=== PATIENT | female | born 1985 | race Caucasian/White ===

== ENCOUNTER 2019-09-08 16:44 | Emergency (ER) | payer OTHER, SELFPAY ==
[2019-09-08 16:53] VITALS: BP 132/77; PULSE 93; RESP 20; TEMP 36.7; O2SAT 98
--- NOTE | 2019-09-08 17:38 | ED.EAR ---
HPI - Ear Problem General Chief complaint: Ear Stated complaint: left ear swelling Time Seen by Provider: 09/08/19 16:53 Source: patient Mode of arrival: ambulatory Limitations: no limitations History of Present Illness HPI Narrative: Patient presents the emergency department for bilateral outer ear irritation x3 days. Reports scaly rash with itching. Reports history of eczema. Denies fever. Related Data Home Medications Medication Instructions Recorded Confirmed triamterene-hydrochlorothiazid tablet 09/08/19 Allergies Allergy/AdvReac Type Severity Reaction Status Date / Time No Known Allergies Allergy Verified 09/08/19 16:58 Review of Systems Review of Systems: Narrative: CONSTITUTIONAL: Denies fever ENT: Reports otalgia. SKIN: Reports rash and itching. All systems reviewed & are unremarkable except as noted in HPI and below PMFSH Past Medical History Medical History (Updated 09/08/19 @ 17:42 by Ying Rao PA-C) Gallbladder disease Surgical History Surgical History (Updated 02/10/19 @ 03:35 by Lesly Arrieta MD) H/O section History of appendectomy Social History Social History (Updated 02/10/19 @ 03:36 by Lesly Arrieta MD) Smoking packs per day: 0.5 Smoking cigarettes per day: 10.0 Smoking status: Current every day smoker Gender identity (if verbalized by the patient): Female Exam Narrative: Exam Narrative: GENERAL: Well-appearing, well-nourished, and in no acute distress. HEAD: Normocephalic, atraumatic. EYES: EOMI. ENT: Bilateral TMs pearly agee non-bulging. Bilateral external auditory canals normal. External ears with crusting and redness NECK: Supple. No adenopathy or masses. EXTREMITIES: Normal range of motion. No edema. SKIN: Warm, dry, no rash. NEURO: No focal deficits. Alert and oriented x3. PSYCH: Normal mood and affect Course Vital Signs Vital signs: Vital Signs Temperature 98.1 F 09/08/19 16:53 Pulse Rate 93 09/08/19 16:53 Respiratory Rate 20 09/08/19 16:53 Blood Pressure 132/77 09/08/19 16:53 Pulse Oximetry 98 09/08/19 16:53 Temperature 98.1 F 09/08/19 16:53 Pulse Rate 93 09/08/19 16:53 Respiratory Rate 20 /21/20 16:53 Blood Pressure 132/77 09/08/19 16:53 Pulse Oximetry 98 09/08/19 16:53 Medical Decision Making Vital Signs Vital Signs: Vital Signs Temperature 98.1 F 09/08/19 16:53 Pulse Rate 93 09/08/19 16:53 Respiratory Rate 09/08/19 16:53 Blood Pressure 132/77 09/08/19 16:53 Pulse Oximetry 98 09/08/19 16:53 Temperature 98.1 F 09/08/19 16:53 Pulse Rate 93 09/08/19 16:53 Respiratory Rate 09/08/19 16:53 Blood Pressure 132/77 09/08/19 16:53 Pulse Oximetry 98 09/08/19 16:53 Critical Care Time Critical Care Time Critical Care Time: No Discharge Plan Discharge Clinical Impression: Dermatitis, seborrheic Patient Disposition: Home, Self-Care Condition: Stable Instructions: Seborrheic Dermatitis (DC) Additional Instructions: Return to the emergency department if you experience fever, worsening pain, worsening swelling, or any other symptoms that are concerning to you Apply steroid twice daily until symptoms resolve. Take a Zyrtec daily to help with itching Follow-up with your primary care doctor Prescriptions: New triamcinolone acetonide 0.1 % cream 1 applic TOPICAL BID Qty: 30 RF: 0 No Action triamterene-hydrochlorothiazid 75-50 mg tablet RF: 0 Follow-up/Referrals: Seamus,Melly Walsh MD [Primary Care Provider] - 3 Days
== END 2019-09-08 17:52 | disposition home or self-care (01) ==
PROVIDERS: Emergency Provider Emergency Medicine; PCP Family Medicine
DX: L21.9 Seborrheic dermatitis, unspecified (principal); F17.210 Nicotine dependence, cigarettes, uncomplicated
CPT/HCPCS: 99283

== ENCOUNTER 2020-01-08 10:09 | Emergency (ER) | payer OTHER, SELFPAY ==
[2020-01-08 10:24] VITALS: BP 142/94; PULSE 83; RESP 12; TEMP 36; O2SAT 99
--- NOTE | 2020-01-08 11:03 | ED.DENTAL ---
HPI - Dental/Oral General Chief complaint: Dental/Oral Stated complaint: R UPPER TOOTHACHE Time Seen by Provider: 01/08/20 10:13 Source: patient Mode of arrival: ambulatory Limitations: no limitations History of Present Illness HPI Narrative: Patient presents with chief complaint of right upper dental pain that has been present over the past week but worsened over the past 24 hours. Patient states that she has been broken dentition with lots of cavities. Patient has not seen a dentist for her symptoms yet. Patient has any fever, chills, nausea, vomiting, diarrhea or drainage. Patient denies chance of . Teeth map: 1. pain, no abscess noted Related Data Home Medications Medication Instructions Recorded Confirmed triamterene-hydrochlorothiazid tablet 09/08/19 Allergies Allergy/AdvReac Type Severity Reaction Status Date / Time No Known Allergies Allergy Verified 09/08/19 16:58 Review of Systems Review of Systems: Narrative: CONSTITUTIONAL: Denies fever, chills, or sweats. EYES: Denies visual changes, redness, or discharge. ENT: Reports dental pain denies rhinorrhea, congestion, sore throat, or otalgia. CARDIOVASCULAR: Denies chest pain, palpitations, or edema. RESPIRATORY: Denies cough or dyspnea. GASTROINTESTINAL: Denies abdominal pain, nausea, vomiting, or diarrhea. GENITOURINARY: Denies dysuria or hematuria. SKIN: Denies rash or itching. MUSCULOSKELETAL: Denies back pain, joint pain, or myalgia. NEUROLOGIC: Denies headache, numbness, dizziness, or weakness. PSYCHIATRIC: Denies anxiety or depression. [facility] Past Medical History Medical History (Updated 01/08/20 @ 11:02 by Anuradha Yeboah PA-C) Gallbladder disease Surgical History Surgical History (Updated 02/10/19 @ 03:35 by Lesly Arrieta MD) H/O section History of appendectomy Social History Social History (Updated 02/10/19 @ 03:36 by Lesly Arrieta MD) Smoking packs per day: 0.5 Smoking cigarettes per day: 10.0 Smoking status: Current every day smoker Gender identity (if verbalized by the patient): Female Exam Narrative: Exam Narrative: GENERAL: Well-appearing, well-nourished, and in no acute distress. HEAD: Normocephalic, atraumatic. EYES: PERRLA and EOMI. ENT: Patient dentition is poor with plaquing, broken dentition, cavities and tooth decay throughout. There is no signs of abscess at the gumline. There is no drainage expressed from the tooth at this time. Nares clear, no rhinorrhea or epistaxis. Mucous membranes moist. Oropharynx without tonsillar hypertrophy exudate or other lesions. Bilateral TMs pearly agee nonbulging NECK: Supple. No adenopathy or masses. CHEST: Clear to auscultation. No respiratory distress. No wheezes rales or rhonchi HEART: Regular rate and rhythm. No murmur heard. EXTREMITIES: Normal range of motion. No edema. SKIN: Warm, dry, no rash. NEURO: No focal deficits. Alert and oriented x3. PSYCH: Normal mood and affect. Course Vital Signs Vital signs: Vital Signs Temperature 96.8 F L 01/08/20 10:24 Pulse Rate 83 01/08/20 10:24 Respiratory Rate 12 01/08/20 10:24 Blood Pressure 142/94 H 01/08/20 10:24 Pulse Oximetry 99 01/08/20 10:24 Temperature 96.8 F L 01/08/20 10:24 Pulse Rate 83 01/08/20 10:24 Respiratory Rate 12 01/08/20 10:24 Blood Pressure 142/94 H 01/08/20 10:24 Pulse Oximetry 99 01/08/20 10:24 MDM - Dental/Oral MDM Narrative Medical decision making narrative: Patient denies any chance of and has been informed that naproxen recommended if is possible. Patient verbalized understanding and states that she is not at all . Patient declines medication in this case. Discussed with patient the importance of following up with a dentist for definitive dental evaluation and treatment. Patient verbalized understanding and will plan denies any other questions or concerns. Differential Diagnosis Different
== END 2020-01-08 11:14 | disposition home or self-care (01) ==
PROVIDERS: Emergency Provider Emergency Medicine; PCP Family Medicine
DX: K02.9 Dental caries, unspecified (principal); F17.210 Nicotine dependence, cigarettes, uncomplicated
CPT/HCPCS: 99283

== ENCOUNTER 2021-05-03 06:40 | Emergency (ER) | payer OTHER, SELFPAY ==
--- NOTE | ~2021-05-03 | XR_ITS ---
EXAMINATION: XR finger 3rd LT min 2V DATE: 05/03/2021 08:00 INDICATION: Left hand third digit pain and redness and swelling. TECHNIQUE: 4 views of left hand third digit were obtained. COMPARISON: None. FINDINGS: Bone alignment is normal. No fracture. Joint spaces are well maintained. IMPRESSION: 1. Normal left hand third digit. Reviewed, dictated and finalized at location A. [employer]
[2021-05-03 06:47] VITALS: BP 132/76; PULSE 79; RESP 18; TEMP 36.6; O2SAT 100
[2021-05-03 07:01] VITALS: BP 114/79; PULSE 72; RESP 16; O2SAT 99
--- NOTE | 2021-05-03 07:09 | ED.SKABFB ---
HPI - Skin/Abscess/Foreign Bdy General Chief complaint: Skin/Abscess/Foreign Body Stated complaint: Left hand infection Time Seen by Provider: 05/03/21 06:59 Source: patient Limitations: no limitations History of Present Illness HPI narrative: The patient is a 36 yo female presenting for evaluation of third left finger pain near the fingernail. Pt with redness, bruising and pain into the middle joint of the finger. She reports finger swelling. States it began three days ago. Denies drainage. No pain at rest. She has been taking Tylenol for it which has not helped. Denies fever or chills. No nausea or vomiting. No trauma or injury. Related Data Allergies Allergy/AdvReac Type Severity Reaction Status Date / Time No Known Allergies Allergy Verified 05/03/21 06:50 Review of Systems Review of Systems: CONSTITUTIONAL: Denies fever CARDIOVASCULAR: Denies chest pain RESPIRATORY: Denies cough or dyspnea. GASTROINTESTINAL: Denies abdominal pain SKIN: Denies rash, reports left third finger pain, swelling MUSCULOSKELETAL: Denies back pain NEUROLOGIC: Denies headache PMFSH Past Medical History Medical History Gallbladder disease Surgical History Surgical History H/O section History of appendectomy Social History Social History Smoking packs per day: 0.5 Smoking cigarettes per day: 10.0 Smoking status: Current every day smoker Gender identity (if verbalized by the patient): Female Exam Narrative: GENERAL: Awake, alert, conversant HEAD: Normocephalic, atraumatic. EYES: PERRLA and EOMI. ENT: Nares clear, no rhinorrhea or epistaxis. Mucous membranes moist. NECK: Supple. CHEST: No respiratory distress, breathing even and non labored HEART: Regular rate, sinus rhythm ABDOMEN:Non distended, non tender EXTREMITIES: Normal range of motion. No edema. Left hand: Distal aspect of left third phalynx is edematous, indurated. Small amount of purulent drainage. Lateral side of nail. No nail avulsion. Mild hand edema of left hand. Intact sensation m/u/r nerve distribution. SKIN: Warm, dry, no rash. NEURO:No focal deficits. Alert and oriented x3 Course Vital Signs Vital signs: Vital Signs Temperature 36.6 C 05/03/21 06:47 Pulse Rate 79 05/03/21 06:47 Respiratory Rate 18 05/03/21 06:47 Blood Pressure 132/76 05/03/21 06:47 Pulse Oximetry 100 05/03/21 06:47 Temperature 36.6 C 05/03/21 06:47 Pulse Rate 61 05/03/21 08:53 Respiratory Rate 14 05/03/21 08:53 Blood Pressure 125/86 05/03/21 08:53 Pulse Oximetry 100 05/03/21 08:53 Procedures Abscess I/D upper extremity: Date of Incision: 05/03/21 Time of Incision: 09:19 Side (if applicable): left Local Anesthetic: lidocaine 1% Amount of anesthesia used (mL): 5 Technique: incised with #11 blade Amount of fluid expressed (mL): 5 Irrigation: No Packing used?: none I&D Results: Pus MDM - Skin/Abscess/Foreign Bdy MDM Narrative Medical decision making narrative: Patient presenting to the emergency department for evaluation of left third digit pain, swelling. At the time of assessment, ABCs are intact and vital signs are stable. Physical exam is consistent with paronychia but there is evidence of edema, erythema, induration. No sign of flexor tenosynovitis. Patient with intact flexion and extension at the DIP and PIP joint. Patient is neurovascularly intact. No wrist injury. No extensive hand cellulitis. There is some edema of the left hand. Paronychia was incised and drained. Dressing was placed. Patient will be placed on antibiotics due to some cellulitic changes on the distal aspect of the left third digit. Patient was then discharged home. Differential Diagnosis Differential diagnosis: Likely abscess of skin or
[2021-05-03 08:26] LABS: Anion Gap 6 mmol/L (8-16); Blood Urea Nitrogen 9 mg/dL (7-17); CRP 1.1 mg/dL (<1.0); Calcium 8.5 mg/dL (8.4-10.2); Carbon Dioxide 27 mmol/L (22-30); Chloride 106 mmol/L (98-107); Estimated CRCL calculation 105 ml/min; Estimated Glomerular Filt Rate > 60; Glucose 113 mg/dL (65-110); Potassium 3.6 mmol/L (3.4-5.0); Sodium 139 mmol/L (137-145)
[2021-05-03 08:53] VITALS: BP 125/86; PULSE 61; RESP 14; O2SAT 100
[2021-05-03 08:56] LABS: Erythrocyte Sedimentation Rate 21 mm/hr (0-20)
[2021-05-03 08:58] LABS: Basophils Percent Auto 0.4 % (0.2-1.2); Eosinophils Absolute Auto 0.3 K/mm3 (0-0.3); Eosinophils Percent Auto 3.4 % (0-4.4); Hematocrit 43.9 % (37.0-47.0); Hemoglobin 14.6 g/dL (12.0-15.0); Immature Granulocyte Absolute 0.02 K/mm3 (0.00-0.031); Immature Granulocyte Percent A 0.2 % (0-0.5); Lymphocytes Absolute Auto 2.35 K/mm3 (0.9-3.2); Lymphocytes Percent Auto 23.9 % (18.3-44.2); Mean Corpuscular HGB Conc 33.3 g/dl (32-36); Mean Corpuscular Hemoglobin 31.5 pg (26-34); Mean Corpuscular Volume 94.8 fl (80-100); Monocytes Absolute Auto 0.8 K/mm3 (0.1-0.6); Monocytes Percent Auto 8.4 % (2.6-8.5); Neutrophils Absolute Auto 6.3 K/mm3 (1.3-6.7); Neutrophils Percent Auto 63.7 % (45.5-73.1); Platelet Count Result 173 k/mm3 (150-375); Red Blood Count 4.63 M/mm3 (4.2-5.4); White Blood Count 9.9 K/mm3 (4.5-10.0)
[2021-05-03 09:15] VITALS: BP 123/94; PULSE 62; RESP 16; O2SAT 100
== END 2021-05-03 09:16 | disposition home or self-care (01) ==
PROVIDERS: Emergency Provider Emergency Medicine
DX: L03.012 Cellulitis of left finger (principal); F17.210 Nicotine dependence, cigarettes, uncomplicated
CPT/HCPCS: 26010; 36415; 73140; 80048; 85025; 85652; 86140; 99283

== ENCOUNTER 2021-12-25 21:17 | Emergency (ER) | payer OTHER, SELFPAY ==
--- NOTE | ~2021-12-25 | XR_ITS ---
XR lumbar spine 2-3V 12/25/2021 22:14 Indication: Low back pain Procedure: 3 views of the lumbar spine Comparison: No prior studies for comparison. Findings: There is mild loss of disc height at all lumbar levels. Vertebral body heights are maintain ed. No fracture or traumatic malalignment. No evidence for spondylolisthesis. There is mild facet hyp ertrophy at L5-S1. Sacral foramen are symmetric. Impression: 1: Mild lumbar spondylosis. Reviewed, dictated and finalized at location A. Impression: 1: Mild lumbar spondylosis.
[2021-12-25 21:32] VITALS: BP 124/63; PULSE 78; RESP 18; TEMP 36.6; O2SAT 99
--- NOTE | 2021-12-25 22:04 | ED.EXTPRO ---
HPI - Extremity Problem General Chief complaint: Extremity Problem,Nontraumatic Stated complaint: right Leg pain Time Seen by Provider: 12/25/21 21:49 History of Present Illness HPI Narrative: This is a 36-year-old female who denies past medical history, presenting the emergency department complaining of right-sided back pain radiating to the right leg. The patient describes the pain as 6/10, sharp, shooting, intermittently associated with numbness. She notes she has an increased lifting of heavy objects at home without other falls or trauma to the back Related Data Allergies Allergy/AdvReac Type Severity Reaction Status Date / Time No Known Allergies Allergy Verified 12/25/21 21:19 Review of Systems Review of Systems: CONSTITUTIONAL: Denies fever, chills, or sweats. CARDIOVASCULAR: Denies chest pain, palpitations, or edema. RESPIRATORY: Denies cough or dyspnea. GASTROINTESTINAL: Denies abdominal pain, nausea, vomiting, or diarrhea. GENITOURINARY: Denies dysuria or hematuria. SKIN: Denies rash or itching. MUSCULOSKELETAL: Back pain, right leg pain denies joint pain, or myalgia. NEUROLOGIC: Denies headache, numbness, dizziness, or weakness. Denies loss of bowel or bladder control. Denies saddle anesthesia PSYCHIATRIC: Denies anxiety or depression. PMFSH Past Medical History Medical History Gallbladder disease Surgical History Surgical History H/O section History of appendectomy Social History Social History Smoking packs per day: 0.5 Smoking cigarettes per day: 10.0 Smoking status: Current every day smoker Gender identity (if verbalized by the patient): Female Exam Narrative: GENERAL: Well-appearing, well-nourished, and in no acute distress. HEAD: Normocephalic, atraumatic. EYES: PERRLA and EOMI. ENT: Nares clear, no rhinorrhea or epistaxis. Mucous membranes moist. Oropharynx without tonsillar hypertrophy exudate or other lesions. NECK: Supple. No adenopathy or masses. No carotid bruits or JVD CHEST: Clear to auscultation. No respiratory distress. No wheezes rales or rhonchi HEART: Regular rate and rhythm. No murmur heard. Normal peripheral pulses. ABDOMEN: Soft, nontender, nondistended, normal active bowel sounds. EXTREMITIES: Normal range of motion. Strength 5/5 in all extremities, sensation intact BACK: Tender to palpation over the right paraspinal musculature of the right hip; no midline spine tenderness, step-off or crepitus SKIN: Varicose veins noted in the right leg greater than the left; skin otherwise warm, dry, no rash. NEURO: No focal deficits. Alert and oriented x3. PSYCH: Normal mood and affect. Course Course Emergency Course: 00:15 - X-ray on my review is not concerning for fracture or disc height loss. Patient states her pain continues, will add Toradol. Patient is seen ambulating in the emergency department without difficulty. Discussed return emergency precautions including signs and symptoms concerning for cauda equina. The patient voiced understanding and is comfortable with plan. All questions answered to her satisfaction. Vital Signs Vital signs: Vital Signs Temperature 97.8 F 12/25/21 21:32 Pulse Rate 78 12/25/21 21:32 Respiratory Rate 18 12/25/21 21:32 Blood Pressure 124/63 12/25/21 21:32 Pulse Oximetry 99 12/25/21 21:32 Oxygen Delivery Room Air 12/25/21 21:32 Temperature 97.8 F 12/25/21 21:32 Pulse Rate 79 12/26/21 00:18 Respiratory Rate 20 12/26/21 00:18 Blood Pressure 124/63 12/25/21 21:32 Pulse Oximetry 99 12/26/21 00:18 Oxygen Delivery Room Air 12/25/21 21:32 MDM - Extremity (Nontraumatic) MDM Narrative Medical decision making narrative: Plan: Imaging, pain control, reassess Differential Diagnosis Differential diagnosis: Likely other (Radiculop
[2021-12-25] MEDS: ACETAMINOPHEN 500 MG TABLET 1000 MG PO (22:17)
[2021-12-25] MEDS: LIDOCAINE 5% PATCH 1 PATCH TRANSDERM (22:17)
[2021-12-25] MEDS: CYCLOBENZAPRINE HCL 5 MG TABLET PO (22:17)
--- NOTE | 2021-12-25 23:25 | PC.NURSE ---
Pt moved to room 13, assumed care at this time.
[2021-12-26] MEDS: KETOROLAC 30 MG/ML VIAL (*BKC) IM (00:15)
[2021-12-26 00:18] VITALS: PULSE 79; RESP 20; O2SAT 99
== END 2021-12-26 00:41 | disposition home or self-care (01) ==
PROVIDERS: Emergency Provider Preventive Medicine Aerospace Medicine; PCP Family Medicine
DX: M47.26 Other spondylosis with radiculopathy, lumbar region (principal); F17.210 Nicotine dependence, cigarettes, uncomplicated
CPT/HCPCS: 72100; 96372; 99283; A9270; J1885

== ENCOUNTER 2023-01-11 17:40 | Emergency (ER) | payer OTHER, SELFPAY ==
--- NOTE | ~2023-01-11 | XR_ITS ---
EXAMINATION: XR chest 1V portable Exam Date/Time: 01/11/2023 18:00 CDT HISTORY: cough X 3 WEEKS DIARRHEA X 4 DAYS Comparison: None. RESULT: Lines, tubes, and devices: None. Lungs and pleura: Mild bilateral reticular opacities, more pronounced in the lower lungs. Streaky ruiz bsegmental bibasilar opacities. Cardiomediastinal silhouette: Unremarkable. Other: No acute osseous or upper abdominal finding. IMPRESSION: Mild interstitial edema with likely bibasilar atelectasis. Infection not excluded. Reviewed, dictated and finalized at location K. IMPRESSION: Mild interstitial edema with likely bibasilar atelectasis. Infection not exclud ed.
[2023-01-11 17:49] VITALS: BP 119/80; PULSE 93; RESP 20; TEMP 36.7; O2SAT 97
[2023-01-11 18:21] VITALS: O2SAT 100
--- NOTE | 2023-01-11 18:38 | ED.URI ---
HPI - URI/Sore Throat General Chief Complaint: Upper Respiratory Infection Stated Complaint: uri Time Seen by Provider: 01/11/23 17:58 History of Present Illness HPI Narrative: Patient presents with 1 to 2 weeks of cough, she also has congestion. Her son is also sick. She says that she sometimes coughs so hard that she gets back pain Related Data Allergies Allergy/AdvReac Type Severity Reaction Status Date / Time No Known Allergies Allergy Verified 01/11/23 17:52 Review of Systems Review of Systems: CONST: No fever. HEENT: Congestion C/V: No chest pain RESP: Cough GI: No nausea or vomiting : No dysuria. M/S: Body ache SKIN: No rash. NEURO: [No headache or focal numbness or weakness] PSYCH: [No depression] PMFSH Past Medical History Medical History Gallbladder disease Surgical History Surgical History H/O section History of appendectomy Social History Social History Smoking packs per day: 0.5 Smoking cigarettes per day: 10.0 Smoking status: Current every day smoker Gender identity (if verbalized by the patient): Female Exam Narrative: EXAMINATION OF ORGAN SYSTEMS/BODY AREAS: Constitutional: Vital signs per nursing GENERAL:[No acute distress, non-toxic appearing.] HEAD: Normal with no signs of head trauma. EYES: EOMI, conjunctiva normal ENT: Airway intact, does have some nasal congestion LUNGS: Nonlabored breathing. Slightly diminished breath sounds with wheezing HEART: [Regular rate and rhythm] ABD: [Soft], [nontender to palpation] EXT: Normal range of motion SKIN: [No rashes or lesions.] NEURO: [Alert and oriented x 3. No gross focal sensory or strength deficits.] PSYCH: Normal affect Course Vital Signs Vital signs: Vital Signs Temperature 98.1 F 01/11/23 17:49 Pulse Rate 93 01/11/23 17:49 Respiratory Rate 20 01/11/23 17:49 Blood Pressure 119/80 01/11/23 17:49 Pulse Oximetry 97 01/11/23 17:49 Temperature 98.1 F 01/11/23 17:49 Pulse Rate 93 01/11/23 17:49 Respiratory Rate 20 01/11/23 17:49 Blood Pressure 119/80 01/11/23 17:49 Pulse Oximetry 100 01/11/23 18:21 Oxygen Delivery Room Air 01/11/23 18:21 MDM - URI/Sore Throat MDM Narrative Medical decision making narrative: ED COURSE AND MEDICAL DECISION MAKING: This 37 year old F patient presents with symptoms most suggestive of viral upper respiratory tract infection. Does have some diminished breath sounds, she does have a smoking history so I do suspect probably acute bronchitis. I will give albuterol and steroids here. Patient is treated symptomatically with albuterol, steroids. Vital signs stable; well appearing here, CXR c/w infection but no consolidations concerning for bacterial pneumonia. She will be discharged home in stable condition with expectant management. Return precautions were provided. Lab Data Labs: Lab Results 01/11/23 Range/Units 18:17 Influenza A (RT-PCR) Pending Influenza B (RT-PCR) Pending RSV (RT-PCR) Pending SARS-CoV-2 RNA (RT-PCR) Pending Discharge Plan Discharge Clinical Impression: Upper respiratory infection, Bronchitis Patient Disposition: Home, Self-Care Condition: Stable Instructions: Antibiotic Form, Acute Bronchitis (ED) Additional Instructions: Please follow up with your doctor in 2-3 days; you can always return for any further issues. Prescriptions: New fluticasone propionate [Allergy Relief (fluticasone)] 50 mcg/actuation spray,suspension 1 spray intranasal DAILY Qty: 16 0RF Rx Instructions: administer into each nostril prednisone 20 mg tablet 40 mg PO DAILY 4 Days Qty: 8 0RF albuterol sulfate 90 mcg/actuation HFA aerosol inhaler 2 puff inhalation QID PRN (Reason: shortness of breath or wh
[2023-01-11] MEDS: ALBUTEROL SULFATE (*SP) AEROSOL 1 PUFF 2 PUFF INHALATION (18:45)
[2023-01-11] MEDS: predniSONE 20 MG TABLET 40 MG PO (19:21)
[2023-01-11 20:27] LABS: Influenza A QL RT-PCR Negative (Negative); Influenza B QL RT-PCR Negative (Negative); RSV RNA, RT-PCR Negative (Negative); SARS-CoV-2 RNA PCR Negative (Negative)
== END 2023-01-11 19:25 | disposition home or self-care (01) ==
LOC: ANHED 18:52
PROVIDERS: Emergency Provider Emergency Medicine
DX: J06.9 Acute upper respiratory infection, unspecified (principal); J40 Bronchitis, not specified as acute or chronic; F17.210 Nicotine dependence, cigarettes, uncomplicated
CPT/HCPCS: 71045; 87637; 94664; 99283; A9270; J7512

== ENCOUNTER 2024-05-18 19:12 | Emergency (ER) | payer OTHER, SELFPAY ==
[2024-05-18 19:21] VITALS: BP 110/57; PULSE 78; RESP 17; TEMP 36.7; O2SAT 93
--- NOTE | 2024-05-18 21:30 | PC.NURSE ---
pt to triage desk stating, I am in so much pain. I want to leave and go home and stay in my own bed . this rn explained the risks of leaving prior to seeing provider. pt continued to express the need to go home. pt not in visible distress at this time. pt ambulatory with steady gait. pt IV removed. IV catheter intact upon removal. LYNDON Junior called lab to cancel lab orders.
[2024-05-18 22:08] LABS: Influenza A QL RT-PCR Negative (Negative); Influenza B QL RT-PCR Negative (Negative); RSV RNA, RT-PCR Negative (Negative); SARS-CoV-2 RNA PCR Negative (Negative)
== END 2024-05-18 21:30 | disposition left against medical advice (07) ==
PROVIDERS: Emergency Provider Emergency Medicine
DX: R10.9 Unspecified abdominal pain (principal); Z20.822 Contact with and (suspected) exposure to COVID-19
CPT/HCPCS: 36415; 87637; 99199